=== PATIENT | female | born 1950 | race Caucasian/White ===

== ENCOUNTER → 2017-12-29 | Outpatient (REF) | payer MEDICARE ==
[2017-12-29 13:27] LABS: INR 0.95; PROTHROMBIN TIME 12.8 SECONDS (12.4-14.5)
[2017-12-29 13:28] LABS: PARTIAL THROMBOPLASTIN TIME 32.7 SECONDS (26.8-37.9)
== END ==
LOC: M LAB REF 12:58
DX: C50.411 Malignant neoplasm of upper-outer quadrant of right female breast (principal)
CPT/HCPCS: 85610

== ENCOUNTER → 2018-01-05 | Outpatient (CLI) | payer MEDICARE | LOC: M PLARAD 10:17 | DX: C50.919 Malignant neoplasm of unspecified site of unspecified female breast (principal) ==

== ENCOUNTER → 2018-01-07 | Outpatient (CLI) | payer MEDICARE ==
[~2018-01-07] MED LIST: LIDOCAINE 2% MDV 20 ML VIAL As Ordered; ceFAZolin 1GM INJ (J0690 PER 500MG) As Ordered
== END | disposition home or self-care (01) ==
LOC: M IRPRO 11:45
DX: C50.919 Malignant neoplasm of unspecified site of unspecified female breast (principal); C77.9 Secondary and unspecified malignant neoplasm of lymph node, unspecified
CPT/HCPCS: 36561

== ENCOUNTER → 2018-01-11 | Outpatient (CLI) | payer MEDICARE | LOC: M PLARAD 09:33 | DX: C50.411 Malignant neoplasm of upper-outer quadrant of right female breast (principal) | CPT/HCPCS: 78815 ==

== ENCOUNTER → 2018-05-31 | Outpatient (CLI) | payer MEDICARE | LOC: M ONCR 09:43 | DX: C50.919 Malignant neoplasm of unspecified site of unspecified female breast (principal) | CPT/HCPCS: G0463 ==

== ENCOUNTER 2018-06-14 09:40 | Outpatient (RCR) | payer MEDICARE | END 2018-06-29 | LOC: M ONCR 06-27 10:01 | DX: C50.411 Malignant neoplasm of upper-outer quadrant of right female breast (principal) | CPT/HCPCS: 77300 ==

== ENCOUNTER 2018-06-30 09:51 | Outpatient (RCR) | payer MEDICARE | END 2018-07-29 | LOC: M ONCR 07-04 09:58 | DX: C50.411 Malignant neoplasm of upper-outer quadrant of right female breast (principal) | CPT/HCPCS: 77336 ==

== ENCOUNTER 2018-08-19 09:36 | Outpatient (RCR) | payer MEDICARE ==
--- NOTE | 2018-08-09 11:22 | RADONC ---
RADIATION ONCOLOGY PROGRESS NOTE DATE: 08/08/2018 CHART NUMBER: [id number] PROGRESS NOTE: Ms. Figueroa is presently at a dose of 4320 cGy to her right chest wall and is tolerating treatments quite well at this point with no significant difficulties related to her radiation therapy. She is reporting no significant discomfort. On physical exam, the patient's skin shows brisk erythema but overall is in good condition with no evidence of moist or dry desquamation. The remainder of her physical exam remains unchanged. I have given the patient's skin care instructions and sent in a prescription for Silvadene cream to be applied topically. In the meantime, radiation will continue as scheduled.
--- NOTE | 2018-08-10 09:51 | RADONC ---
RADIATION ONCOLOGY SIMULATION NOTE DATE: 08/09/2018 CHART NUMBER: [id number] Ms. Figueroa was taken to the linear accelerator today for clinical setup of her right chest wall electron beam boost field. Setup was accomplished without difficulty or discomfort. Radiation treatment planning is underway, and radiation treatments will begin subsequently. An immobilization device was created and will be used throughout the course of treatment. I was physically present throughout the course of clinical setup simulation.
--- NOTE | 2018-08-15 15:19 | RADONC ---
RADIATION ONCOLOGY PROGRESS NOTE DATE: 08/15/2018 CHART NUMBER: [id number] PROGRESS NOTE: Ms. Figueroa is presently at a dose of 5220 cGy to her scar boost right chest wall site and is tolerating her treatments with some discomfort of the skin. REVIEW OF SYSTEMS: The patient's review of systems is positive for skin discomfort but is otherwise noncontributory. Denies nausea, vomiting, fevers, chills, night sweats, diplopia, headaches, anxiety or depression, anorexia, weight loss, visual disturbances, chest pain, urinary or bowel difficulties, bone pain, or neurological problems. PHYSICAL EXAMINATION: The patient's skin shows erythema and tanning present but overall is in generally good condition. She is using her Silvadene. The remainder of physical exam remains unchanged. The patient is tolerating treatments fairly well and radiation will continue as scheduled.
[~2018-08-19 09:36] MED LIST changes: +CALC600T7 PO; +DOXY100C PO; +LETR2.5T2 PO; -LIDOCAINE 2% MDV 20 ML VIAL As Ordered; +METO1TAB33 PO; +MULTCAP PO; +SILV40CR EXT; -ceFAZolin 1GM INJ (J0690 PER 500MG) As Ordered
--- NOTE | 2018-08-25 11:13 | RADONC ---
RADIATION ONCOLOGY TREATMENT SUMMARY DATE: 08/19/2018 CHART NUMBER: [id number] DIAGNOSIS: Right breast cancer. STAGE: III B, pT2, pN3a, M0, grade 3, ER positive, NJ positive, HER2 negative. ECOG PERFORMANCE STATUS: 0 TREATMENT SUMMARY: Ms. 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 We treated the patient to the right chest wall and axillary as well as supraclavicular lymph node drainage sites for a dose of 5040 cGy delivered in 28 fractions of 180 cGy each over 44 elapsed days from 06/27/2018 through 08/12/2018. The patient's right chest wall was treated on a linear accelerator utilizing a combination of 6X and 10X photon beams via 3D and conformal therapy with medial lateral tangential chen. 1/2 cm of tissue equivalent bolus was placed over the right chest wall. The lymph node drainage sites were treated with a combination of 10X and 15X photon beams. We utilized an anterior oblique field as well as a posterior axillary field and 3D conformal therapy. Following completion of 5040 cGy to the chest wall and lymph node drainage sites, the scar was boosted for an additional 900 cGy delivered in five fractions of 180 cGy each from 08/15/2018 to 08/19/2018. The scar boost was treated on the linear accelerator utilizing a 6 MeV electron beam prescribed to the 90% isodose line via an en face technique. This brought the patient's scar to a total dose of 5948 cGy delivered in 33 fractions over 51 elapsed days from 06/27/2018 to 08/19/2018. Ms. Figueroa tolerated her treatments quite well although she did develop a brisk skin reaction with erythema and tanning present. The patient is scheduled see me again in 1 month for further followup. She will continue to be followed by her other physicians as well. cc: Melody Meadows MD, FACP [facility]
== END 2018-08-29 ==
LOC: M ONCR 09:36
PROVIDERS: ATTEND Radiology Radiation Oncology
DX: C50.411 Malignant neoplasm of upper-outer quadrant of right female breast (principal)

== ENCOUNTER → 2018-09-28 | Outpatient (CLI) | payer MEDICARE ==
--- NOTE | 2018-09-29 08:29 | RADONC ---
RADIATION ONCOLOGY FOLLOWUP NOTE DATE: 09/28/2018 CHART NUMBER: [id number] DIAGNOSIS: Right breast cancer. STAGE: Stage III B, [id number], grade 3, ER positive, OR positive, HER2/saniya negative. ECOG PERFORMANCE STATUS: 0. FOLLOWUP NOTE: Ms. 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 The patient presents today reporting that she is doing quite well with no complaints at this time related to her radiation therapy or disease. She has no chest wall or bone pain. The patient's review of systems is noncontributory. Denies nausea, vomiting, fevers, chills, night sweats, diplopia, headaches, anxiety or depression, anorexia, weight loss, visual disturbances, chest pain, urinary or bowel difficulties, bone pain, or neurological problems. PHYSICAL EXAMINATION: The patient is a well-developed, well-nourished female in no acute distress. HEENT exam is normocephalic, atraumatic. Extraocular movements are intact. There is no palpable cervical, supraclavicular, infraclavicular, axillary, or inguinal lymphadenopathy present. Lungs are clear to auscultation and percussion. Heart has a regular rate and rhythm. Abdomen is benign with no hepatosplenomegaly, masses, or tenderness. Breast examination reveals a left breast that is free of masses or discharge. Her right chest wall shows some radiation tanning present, but overall is in good condition with no evidence of nodularity, ulceration, residual or recurrent disease. Skeletal examination reveals no tenderness to pressure or percussion of the bony skeleton. Extremities reveal no clubbing, cyanosis, or edema. Neurologic exam is grossly intact, as is the remainder of the physical examination. ASSESSMENT: The patient is clinically CARLA at this time and will be seen by us again in 6 months for further followup. She will also continue to be followed by her other physicians as well. cc: Melody Meadows MD, FACP [facility] Yo
== END ==
LOC: M ONCR 09:12
PROVIDERS: ATTEND Radiology Radiation Oncology
DX: C50.411 Malignant neoplasm of upper-outer quadrant of right female breast (principal)

== ENCOUNTER → 2019-04-05 | Outpatient (CLI) | payer MEDICARE ==
[~2019-04-05] MED LIST changes: +VIACTIV 500-5001 CHW PO; +VITATAB64 PO
--- NOTE | 2019-04-07 07:21 | RADONC ---
RADIATION ONCOLOGY FOLLOWUP NOTE DATE: 04/05/2019 CHART #: [id number] DIAGNOSIS: Right breast cancer. STAGE: III B, pathologic T2, pN3a, M0. The patient's tumor was grade 3, ER positive NV positive, HER2/saniya negative. ECOG PERFORMANCE STATUS: 1. FOLLOWUP NOTE: Mrs. Figueroa is a pleasant 68-year-old female with a diagnosis of what appears to be a stage III B, T2, pN3a, M0, grade 3 infiltrating ductal carcinoma involving the right breast, ER positive, NV positive and HER2/saniya negative. She was treated with adjuvant local regional radiotherapy from 06/27/2018 through 08/12/2018. She returns today for followup with no specific complaints referable to her disease or to her treatments. REVIEW OF SYSTEMS: She continues to do quite well, denying any nausea, vomiting, coughing, sputum production or hemoptysis. She also denies bone pain, chest pain or other major issues. The remainder of the review of systems is unchanged. PHYSICAL EXAMINATION: The patient is a well-developed, well-nourished female in no acute distress. HEENT: Normocephalic. EOMs intact. PERRLA. Fundi benign. Lymphatics: No palpable peripheral lymphadenopathy is appreciated in the cervical, supraclavicular, axillary or inguinal lymph node chains. Lungs are clear to auscultation and percussion. Heart: Regular without murmurs. Abdomen: Without evidence of hepatomegaly, masses, deep abdominal tenderness. Extremities: Without cyanosis, clubbing or edema. Neurologic Examination: Grossly physiologic and nonfocal. Breasts: She has a surgically absent right breast and no evidence of local regional recurrence. The left breast is free of masses or other skin abnormalities. IMPRESSION: The patient is clinically CARLA at this time. PLAN: She is to continue followup in medical oncology as she is receiving letrozole and we have instructed her to return to her referring physicians as per their directions and instructions. cc: Melody Meadows MD, FACP [facility] Yo
== END ==
LOC: M ONCR 09:20
PROVIDERS: ATTEND Radiology Radiation Oncology
DX: Z08 Encounter for follow-up examination after completed treatment for malignant neoplasm (principal); Z85.3 Personal history of malignant neoplasm of breast

== ENCOUNTER → 2019-07-10 | Outpatient (REF) | LOC: M LAB LCGH 14:54 | PROVIDERS: ATTEND Surgery | DX: Z45.2 Encounter for adjustment and management of vascular access device (principal) ==

== ENCOUNTER → 2024-08-14 | Outpatient (REF) | payer MEDICARE ==
[~2024-08-14] MED LIST changes: +CALC-212 PO; -CALC600T7 PO; -DOXY100C PO; +DOXY100C3 PO; +LOSA25TA13; +MAG100TA PO; +MULT-90 PO; +VIAC1CHW PO; +VITA100093 PO
== END ==
LOC: M LAB REF 14:46
PROVIDERS: ATTEND Dentist
DX: K13.70 Unspecified lesions of oral mucosa (principal)